=== PATIENT | male | born 1970 | race Caucasian/White ===

== ENCOUNTER 2017-10-16 08:46 | Emergency (ER) | payer MEDICAID, OTHER ==
[~2017-10-16] VITALS: Ht 167.6 cm; Wt 118.2 kg
[~2017-10-16 08:46] MED LIST: CYCL-1 PO; EMOL250L TOP; METH-360 PO; OMEP40CA37 PO; OXYC-145 PO; SUCR1ORA2 PO
[2017-10-16 08:53] VITALS: BP 151/101
[2017-10-16] MEDS ORDERED: TOBR5DRO2 EACHEYE (09:09)
== END 2017-10-16 09:11 | disposition home or self-care (01) ==
LOC: ER 08:48
DX: H10.9 Unspecified conjunctivitis (principal); K21.9 Gastro-esophageal reflux disease without esophagitis; L40.9 Psoriasis, unspecified; G89.29 Other chronic pain; Z98.890 Other specified postprocedural states; Z79.899 Other long term (current) drug therapy
CPT/HCPCS: 99283

== ENCOUNTER 2018-03-01 10:35 | Emergency (ER) | payer OTHER ==
[~2018-03-01] VITALS: Ht 167.6 cm; Wt 127.3 kg
[~2018-03-01 10:35] MED LIST changes: +TOBR5DRO2 EACHEYE
[2018-03-01 12:29] VITALS: BP 162/104
== END 2018-03-01 12:31 | disposition home or self-care (01) ==
LOC: ER 10:36
DX: S00.81XA Abrasion of other part of head, initial encounter (principal); L40.9 Psoriasis, unspecified; K21.9 Gastro-esophageal reflux disease without esophagitis; W10.8XXA Fall (on) (from) other stairs and steps, initial encounter; Y93.89 Activity, other specified; Y92.89 Other specified places as the place of occurrence of the external cause; Y99.8 Other external cause status
CPT/HCPCS: 70450; 99284

== ENCOUNTER 2018-03-03 06:10 | Emergency (ER) | payer OTHER ==
[~2018-03-03] VITALS: Ht 167.6 cm; Wt 127.0 kg
[2018-03-03 06:14] VITALS: BP 160/100
== END 2018-03-03 07:08 | disposition left against medical advice (07) ==
LOC: ER 06:11
DX: R11.10 Vomiting, unspecified (principal); R19.7 Diarrhea, unspecified; I10 Essential (primary) hypertension; R07.9 Chest pain, unspecified; R51 Headache; R06.02 Shortness of breath; R10.9 Unspecified abdominal pain; Z53.21 Procedure and treatment not carried out due to patient leaving prior to being seen by health care provider
CPT/HCPCS: 93005; 99281

== ENCOUNTER 2018-10-04 06:54 | Emergency (ER) | payer SELFPAY ==
[~2018-10-04] VITALS: Ht 167.6 cm; Wt 129.9 kg
[2018-10-04] MEDS ORDERED: gentamicin 0.3% ophthalmic drops 5ML EACHEYE ONE (08:20)
[2018-10-04] MEDS ORDERED: lisinopril 10 MG tablet PO ONE (08:20)
[2018-10-04] MEDS ORDERED: naphazoline/pheniramine eye 1 DROP BOTTLE EACHEYE PRN (08:20)
[2018-10-04] MEDS ORDERED: LISI-600 PO (08:23)
[2018-10-04 08:44] VITALS: BP 142/119
== END 2018-10-04 08:47 | disposition home or self-care (01) ==
LOC: ER 06:56
DX: H10.9 Unspecified conjunctivitis (principal); I10 Essential (primary) hypertension; K21.9 Gastro-esophageal reflux disease without esophagitis; G89.29 Other chronic pain; Z98.890 Other specified postprocedural states; Z79.899 Other long term (current) drug therapy
CPT/HCPCS: 99283

== ENCOUNTER 2018-11-06 07:31 | Emergency (ER) | payer SELFPAY ==
[~2018-11-06] VITALS: Ht 165.1 cm; Wt 113.6 kg
[~2018-11-06 07:31] MED LIST changes: +OMEP40CA13 PO; -OMEP40CA37 PO
[2018-11-06 08:13] VITALS: BP 181/100
[2018-11-06] MEDS ORDERED: ciprofloxacin 0.3% 2.5ml ophthalmic solution EACHEYE ONE (08:15)
== END 2018-11-06 09:57 | disposition home or self-care (01) ==
LOC: ER 07:32
DX: H10.9 Unspecified conjunctivitis (principal); I10 Essential (primary) hypertension; K21.9 Gastro-esophageal reflux disease without esophagitis; G89.29 Other chronic pain; Z98.890 Other specified postprocedural states; Z79.899 Other long term (current) drug therapy
CPT/HCPCS: 99282

== ENCOUNTER 2019-08-05 14:27 | Emergency (ER) | payer MEDICAID, OTHER ==
[~2019-08-05] VITALS: Ht 172.7 cm; Wt 160.0 kg
[2019-08-05 15:21] LABS: BASOPHILS % (AUTO) 0.3 % (0-1); EOSINOPHILS % (AUTO) 0.1 % (0-6); HEMATOCRIT 42.4 % (42.0-52.0); HEMOGLOBIN 14.4 g/dl (14.0-17.9); LYMPHOCYTES # (AUTO) 0.6 X10'3 (1.1-4.8); LYMPHOCYTES % (AUTO) 10.8 % (21-51); MEAN CORPUSCULAR HEMOGLOBIN 33.9 PG (27.0-31.0); MEAN CORPUSCULAR VOLUME 99.8 FL (78-98); MEAN PLATELET VOLUME 8.1 FL (7.4-10.4); MONOCYTES # (AUTO) 0.4 X10'3 (0-0.9); MONOCYTES % (AUTO) 6.5 % (2-12); NEUTROPHILS # (AUTO) 4.8 X10'3 (1.8-7.7); NEUTROPHILS % (AUTO) 82.3 % (42-75); RED BLOOD COUNT 4.24 X10'6 (4.70-6.10); RED CELL DISTRIBUTION WIDTH 13.8 % (11.5-14.5); WHITE BLOOD COUNT 5.8 X10'3 (4.5-11.0)
[2019-08-05 15:38] LABS: ALANINE AMINOTRANSFERASE 148 U/L (12-78); ALBUMIN 3.3 G/DL (3.4-5.0); ALBUMIN/GLOBULIN RATIO 0.9 (1.1-1.5); ALKALINE PHOSPHATASE 131 IU/L (46-116); ANION GAP 18 (8-16); ASPARTATE AMINO TRANSFERASE 353 U/L (10-37); BLOOD UREA NITROGEN 10 MG/DL (7-18); BUN/CREATININE RATIO 10.5 (5.4-32.0); CALCIUM 8.4 MG/DL (8.5-10.1); CHLORIDE 98 MMOL/L (99-107); CREATININE 0.95 MG/DL (0.60-1.10); GLUCOSE 102 MG/DL (70-104); POTASSIUM 3.4 MMOL/L (3.5-5.1); SODIUM 136 MMOL/L (135-145); TOTAL PROTEIN 7.1 G/DL (6.4-8.2); eGFR 84 ML/MIN
[2019-08-05 15:39] LABS: PLATELET COUNT 38 X10'3 (140-440)
[2019-08-05] MEDS ORDERED: thiamine 100mg/ml 2ml inj. IV ONE (15:45)
[2019-08-05] MEDS ORDERED: potassium chloride 10mEq ER tablet PO ONE (15:45)
[2019-08-05] MEDS ORDERED: normal saline 1000ML IV soln IVB ONE (15:45)
[2019-08-05] MEDS ORDERED: folic acid 1mg/0.2ml inj IV ONE (15:45)
[2019-08-05] MEDS ORDERED: LORazepam 2 mg/ml vial IV ONE (15:45)
[2019-08-05] MEDS ORDERED: ondansetron/PF 4mg/2ml inj IV ONE (15:45)
[2019-08-05 15:47] LABS: MAGNESIUM 1.4 MG/DL (1.5-2.4)
[2019-08-05 17:26] VITALS: BP 153/84
== END 2019-08-05 17:20 | disposition home or self-care (01) ==
LOC: ER 14:27
DX: K70.10 Alcoholic hepatitis without ascites (principal); R53.1 Weakness; R20.0 Anesthesia of skin; I10 Essential (primary) hypertension; K21.9 Gastro-esophageal reflux disease without esophagitis; G89.29 Other chronic pain; Z98.890 Other specified postprocedural states; Z72.89 Other problems related to lifestyle; Z79.2 Long term (current) use of antibiotics; Z79.899 Other long term (current) drug therapy
CPT/HCPCS: 36415; 71045; 76700; 80053; 83735; 83880; 84484; 85025; 85610; 93005; 96374; 96375; 99285; J2060; J2405; J3411; J3490; J7030

== ENCOUNTER 2019-12-01 12:38 | Emergency (ER) | payer MEDICAID, OTHER ==
[~2019-12-01] VITALS: Ht 167.6 cm; Wt 139.7 kg
[2019-12-01] MEDS ORDERED: LIDOcaine 2% 10ml TOPICAL JELLY (Urojet) MM ONE (15:55)
[2019-12-01 17:18] LABS: BASOPHILS # (AUTO) 0.1 X10'3 (0-0.2); BASOPHILS % (AUTO) 0.8 % (0-1); EOSINOPHILS # (AUTO) 0.2 X10'3 (0-0.9); EOSINOPHILS % (AUTO) 2.1 % (0-6); HEMATOCRIT 31.5 % (42.0-52.0); HEMOGLOBIN 10.5 g/dl (14.0-17.9); LYMPHOCYTES # (AUTO) 1.6 X10'3 (1.1-4.8); LYMPHOCYTES % (AUTO) 16.8 % (21-51); MEAN CORPUSCULAR HEMOGLOBIN 36.3 PG (27.0-31.0); MEAN CORPUSCULAR HGB CONC 33.4 g/dL (33.0-36.5); MEAN CORPUSCULAR VOLUME 108.7 FL (78-98); MEAN PLATELET VOLUME 8.2 FL (7.4-10.4); MONOCYTES # (AUTO) 1.3 X10'3 (0-0.9); MONOCYTES % (AUTO) 13.7 % (2-12); NEUTROPHILS # (AUTO) 6.4 X10'3 (1.8-7.7); NEUTROPHILS % (AUTO) 66.6 % (42-75); PLATELET COUNT 74 X10'3 (140-440); RED CELL DISTRIBUTION WIDTH 14.4 % (11.5-14.5); WHITE BLOOD COUNT 9.6 X10'3 (4.5-11.0)
[2019-12-01 17:30] LABS: ALANINE AMINOTRANSFERASE 39 U/L (12-78); ALBUMIN 2.3 G/DL (3.4-5.0); ALKALINE PHOSPHATASE 122 IU/L (46-116); ANION GAP 6 (8-16); ASPARTATE AMINO TRANSFERASE 61 U/L (10-37); BILIRUBIN,TOTAL 4.7 MG/DL (0.1-1.0); BLOOD UREA NITROGEN 14 MG/DL (7-18); BUN/CREATININE RATIO 11.6 (5.4-32.0); CALCIUM 8.7 MG/DL (8.5-10.1); CHLORIDE 108 MMOL/L (99-107); CREATININE 1.21 MG/DL (0.60-1.10); GLUCOSE 96 MG/DL (70-104); POTASSIUM 4.2 MMOL/L (3.5-5.1); SODIUM 141 MMOL/L (135-145); TOTAL CARBON DIOXIDE 27.2 MMOL/L (24-32); eGFR 64 ML/MIN
[2019-12-01] MEDS ORDERED: albumin (Human) 5% 250ml 250 ML IV ONE (17:50)
[2019-12-01 17:52] LABS: ALBUMIN/GLOBULIN RATIO 0.5 (1.1-1.5); TOTAL PROTEIN 6.6 G/DL (6.4-8.2)
[2019-12-01 18:34] LABS: PLATELET ESTIMATE DECREASED
[2019-12-01 18:37] LABS: ANISOCYTOSIS FEW
[2019-12-01 18:38] LABS: LARGE PLATELETS FEW; POLYCHROMASIA 1+
--- NOTE | 2019-12-01 19:33 | NUR ---
CALZIME CREAM PLACED AFTER CLEANING WOUND ON PENIS, EXTRA CALZIME CREAM WILL BE SENT HOME WITH PT
[2019-12-01 19:58] LABS: CLARITY,URINE CLOUDY (Clear); COLOR,URINE AMBER (Yellow); GLUCOSE, URINE NEGATIVE (Neg); KETONES,URINE NEGATIVE (Neg); LEUKOCYTE ESTERASE ,URINE NEGATIVE (Neg); NITRITES, URINE NEGATIVE (Neg); OCCULT BLOOD,URINE LARGE (Neg); PROTEIN,URINE NEGATIVE (Neg)
[2019-12-01 20:01] LABS: UA COLLECTION TYPE FOLEY CATH
[2019-12-01 20:04] LABS: BACTERIA,URINE NONE SEEN /HPF (Neg); RBC,URINE 0-2 /HPF (0-2); SQUAMOUS EPITHELIAL CELL,UR FEW /LPF (FEW); WBC,URINE NONE SEEN /HPF (0-4)
[2019-12-01 21:23] VITALS: BP 145/78
== END 2019-12-01 21:26 | disposition home or self-care (01) ==
LOC: ER 12:40
DX: K74.60 Unspecified cirrhosis of liver (principal); R18.8 Other ascites; E66.9 Obesity, unspecified; I10 Essential (primary) hypertension; K21.9 Gastro-esophageal reflux disease without esophagitis; G89.29 Other chronic pain; Z98.890 Other specified postprocedural states
CPT/HCPCS: 36415; 49083; 80053; 81001; 85008; 85025; 85610; 96365; 99285; P9045

== ENCOUNTER 2019-12-03 07:38 | Emergency (ER) | payer MEDICAID ==
[~2019-12-03] VITALS: Ht 167.6 cm; Wt 90.0 kg
[2019-12-03 07:44] VITALS: BP 139/67
--- NOTE | 2019-12-03 08:05 | NUR ---
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
--- NOTE | 2019-12-03 08:39 | NUR ---
F/C REMOVED PER MD ORDERS. PT AMBULATED TO BR AND WAS ABLE TO VOID AND HAVE A BM PER HIM.
== END 2019-12-03 08:41 | disposition home or self-care (01) ==
LOC: ER 07:39
DX: T83.9XXA Unspecified complication of genitourinary prosthetic device, implant and graft, initial encounter (principal); I10 Essential (primary) hypertension; K21.9 Gastro-esophageal reflux disease without esophagitis; G89.29 Other chronic pain; R21 Rash and other nonspecific skin eruption; Z98.890 Other specified postprocedural states; Z72.89 Other problems related to lifestyle; Z79.899 Other long term (current) drug therapy
CPT/HCPCS: 99284

== ENCOUNTER 2019-12-14 06:52 | Day surgery (SDC) | payer MEDICAID ==
[~2019-12-14] VITALS: Ht 165.1 cm; Wt 145.4 kg
[2019-12-14] VITALS (10 sets, daily range): BP systolic 120–152; BP diastolic 57–92
[2019-12-14] MEDS ORDERED: LACT10SO57 PO (07:38)
[2019-12-14] MEDS ORDERED: SPIR100T5 PO (07:38)
[2019-12-14] MEDS ORDERED: CYAN500T64 PO (07:38)
[2019-12-14] MEDS ORDERED: FURO40TA4 PO (07:38)
[2019-12-14] MEDS ORDERED: THIA100T70 PO (07:38)
[2019-12-14] MEDS ORDERED: POTA20PA40 PEG (07:38)
[2019-12-14] MEDS: albumin 25% 100mL bottle x 1 IV PRN ×2 (09:08→09:57)
== END 2019-12-14 10:50 | disposition home or self-care (01) ==
LOC: SSTAY O 06:52
PROVIDERS: ATTEND Radiology Vascular & Interventional Radiology
DX: K70.31 Alcoholic cirrhosis of liver with ascites (principal); I10 Essential (primary) hypertension; K21.9 Gastro-esophageal reflux disease without esophagitis; G89.29 Other chronic pain; Z98.890 Other specified postprocedural states; Z72.89 Other problems related to lifestyle; Z79.899 Other long term (current) drug therapy
CPT/HCPCS: 49083; P9047

== ENCOUNTER 2019-12-24 06:36 | Day surgery (SDC) | payer MEDICAID ==
[2019-12-24] VITALS (13 sets, daily range): BP systolic 100–151; BP diastolic 52–83
[~2019-12-24] VITALS: Ht 165.1 cm; Wt 140.0 kg
[~2019-12-24 06:36] MED LIST changes: +CYAN500T64 PO; -CYCL-1 PO; -EMOL250L TOP; +FURO40TA4 PO; +LACT10SO57 PO; -METH-360 PO; -OMEP40CA13 PO; -OXYC-145 PO; +POTA20PA40 PEG; +SPIR100T5 PO; -SUCR1ORA2 PO; +THIA100T70 PO; -TOBR5DRO2 EACHEYE
[2019-12-24] MEDS: albumin 25% 100mL bottle x 1 IV PRN ×2 (08:52→10:17)
== END 2019-12-24 11:31 | disposition home or self-care (01) ==
LOC: SSTAY O 06:36
PROVIDERS: ATTEND Radiology Diagnostic Radiology
DX: K70.31 Alcoholic cirrhosis of liver with ascites (principal); I10 Essential (primary) hypertension; K21.9 Gastro-esophageal reflux disease without esophagitis; G89.29 Other chronic pain; D53.9 Nutritional anemia, unspecified; D69.6 Thrombocytopenia, unspecified; Z98.890 Other specified postprocedural states; Z72.89 Other problems related to lifestyle; Z87.891 Personal history of nicotine dependence
CPT/HCPCS: 49083; P9047

== ENCOUNTER 2019-12-24 17:30 | Emergency (ER) | payer MEDICAID ==
[~2019-12-24] VITALS: Ht 167.6 cm; Wt 130.0 kg
[2019-12-24] MEDS ORDERED: ketorolac trometh inj. 60 MG/2 ML VIAL IM ONE (20:45)
[2019-12-24 21:20] VITALS: BP 153/83
== END 2019-12-24 21:23 | disposition home or self-care (01) ==
LOC: ER 17:30
DX: M79.10 Myalgia, unspecified site (principal); K70.30 Alcoholic cirrhosis of liver without ascites; I10 Essential (primary) hypertension; K21.9 Gastro-esophageal reflux disease without esophagitis; G89.29 Other chronic pain; Z98.890 Other specified postprocedural states; Z72.89 Other problems related to lifestyle; Z79.899 Other long term (current) drug therapy
CPT/HCPCS: 96372; 99283; J1885

== ENCOUNTER 2020-01-01 08:02 | Emergency (ER) | payer MEDICAID ==
[~2020-01-01] VITALS: Ht 167.6 cm; Wt 127.3 kg
[2020-01-01] MEDS ORDERED: pantoprazole 40 MG vial IV ONE (08:20)
[2020-01-01] MEDS ORDERED: ondansetron/PF 4mg/2ml inj IV ONE (08:20)
[2020-01-01] MEDS ORDERED: famotidine/PF 10 mg/ml inj IV ONE (08:20)
[2020-01-01 08:33] LABS: BASOPHILS # (AUTO) 0.1 X10'3 (0-0.2); BASOPHILS % (AUTO) 0.5 % (0-1); EOSINOPHILS # (AUTO) 0.2 X10'3 (0-0.9); EOSINOPHILS % (AUTO) 2.1 % (0-6); HEMOGLOBIN 9.6 g/dl (14.0-17.9); LYMPHOCYTES # (AUTO) 1.4 X10'3 (1.1-4.8); LYMPHOCYTES % (AUTO) 14.5 % (21-51); MEAN CORPUSCULAR HEMOGLOBIN 35.5 PG (27.0-31.0); MEAN CORPUSCULAR HGB CONC 33.3 g/dL (33.0-36.5); MEAN CORPUSCULAR VOLUME 106.7 FL (78-98); MONOCYTES # (AUTO) 0.8 X10'3 (0-0.9); NEUTROPHILS # (AUTO) 7.3 X10'3 (1.8-7.7); NEUTROPHILS % (AUTO) 74.9 % (42-75); PLATELET COUNT 66 X10'3 (140-440); RED BLOOD COUNT 2.72 X10'6 (4.70-6.10); RED CELL DISTRIBUTION WIDTH 15.5 % (11.5-14.5); WHITE BLOOD COUNT 9.8 X10'3 (4.5-11.0)
[2020-01-01 08:49] LABS: PARTIAL THROMBOPLASTIN TIME 31 SECONDS (22-32)
[2020-01-01 08:57] LABS: ALANINE AMINOTRANSFERASE 40 U/L (12-78); ALBUMIN 2.4 G/DL (3.4-5.0); ALKALINE PHOSPHATASE 126 IU/L (46-116); ANION GAP 4 (8-16); ASPARTATE AMINO TRANSFERASE 47 U/L (10-37); BILIRUBIN,TOTAL 4.5 MG/DL (0.1-1.0); BLOOD UREA NITROGEN 23 MG/DL (7-18); CALCIUM 8.3 MG/DL (8.5-10.1); CHLORIDE 105 MMOL/L (99-107); CREATININE 1.64 MG/DL (0.60-1.10); GLUCOSE 124 MG/DL (70-104); POTASSIUM 4.3 MMOL/L (3.5-5.1); SODIUM 135 MMOL/L (135-145); TOTAL CARBON DIOXIDE 25.9 MMOL/L (24-32); eGFR 45 ML/MIN
[2020-01-01 09:02] LABS: ALBUMIN/GLOBULIN RATIO 0.6 (1.1-1.5); TOTAL PROTEIN 6.7 G/DL (6.4-8.2)
[2020-01-01] MEDS ORDERED: proCHLORperazine 10 MG/2 ml inj IV ONE (09:25)
[2020-01-01] MEDS ORDERED: FAMO-128 PO (09:32)
[2020-01-01] MEDS ORDERED: ONDA4TAB6 PO (09:32)
[2020-01-01 10:31] VITALS: BP 144/82
[2020-01-01 10:36] LABS: CLARITY,URINE SLIGHTLY CLOUDY (Clear); COLOR,URINE AMBER (Yellow); GLUCOSE, URINE NEGATIVE (Neg); KETONES,URINE NEGATIVE (Neg); LEUKOCYTE ESTERASE ,URINE NEGATIVE (Neg); NITRITES, URINE NEGATIVE (Neg); OCCULT BLOOD,URINE LARGE (Neg); PH,URINE 5.5 (4.8-8.0); PROTEIN,URINE 30 mg/dl (Neg)
[2020-01-01 10:37] LABS: UA COLLECTION TYPE VOIDED
[2020-01-01 10:47] LABS: MUCUS STRANDS FEW /LPF (Neg); SQUAMOUS EPITHELIAL CELL,UR MODERATE /LPF (FEW)
[2020-01-01 10:49] LABS: BACTERIA,URINE 1+ /HPF (Neg); RBC,URINE 50-100 /HPF (0-2)
[2020-01-01 10:50] LABS: TRANSITIONAL EPI CELLS,URINE FEW /HPF
[2020-01-01 10:55] LABS: COARSE GRANULAR CAST 0-3 /LPF (NEGATIVE); WBC CASTS 0-3 /LPF (NEGATIVE)
== END 2020-01-01 10:34 | disposition home or self-care (01) ==
LOC: ER 08:03
DX: K62.5 Hemorrhage of anus and rectum (principal); K29.70 Gastritis, unspecified, without bleeding; I10 Essential (primary) hypertension; K21.9 Gastro-esophageal reflux disease without esophagitis; G89.29 Other chronic pain; Z98.890 Other specified postprocedural states; Z72.89 Other problems related to lifestyle; Z79.899 Other long term (current) drug therapy
CPT/HCPCS: 36415; 71045; 80053; 81001; 85025; 85610; 85730; 86885; 86900; 86901; 87088; 93005; 96374; 96375; 96376; 99285; C9113; J0780; J2405; J3490

== ENCOUNTER 2020-01-04 07:04 | Day surgery (SDC) | payer MEDICAID ==
[~2020-01-04] VITALS: Ht 165.1 cm; Wt 132.3 kg
[2020-01-04] VITALS (9 sets, daily range): BP systolic 123–137; BP diastolic 60–77
[~2020-01-04 07:04] MED LIST changes: +FAMO-128 PO; +ONDA4TAB6 PO
[2020-01-04] MEDS ORDERED: normal saline 1000ml 1,000 ML IV PRN (07:35)
[2020-01-04] MEDS: albumin 25% 100mL bottle x 1 IV PRN ×2 (09:06→09:42)
== END 2020-01-04 10:40 | disposition home or self-care (01) ==
LOC: SSTAY O 07:04
PROVIDERS: ATTEND Radiology Vascular & Interventional Radiology
DX: K70.31 Alcoholic cirrhosis of liver with ascites (principal); Z79.899 Other long term (current) drug therapy; Z98.890 Other specified postprocedural states; Z72.89 Other problems related to lifestyle
CPT/HCPCS: 49083; P9047

== ENCOUNTER 2020-01-15 08:20 | Day surgery (SDC) | payer MEDICAID ==
[2020-01-15] VITALS (10 sets, daily range): BP systolic 118–131; BP diastolic 45–76
[~2020-01-15] VITALS: Ht 165.1 cm; Wt 130.2 kg
[2020-01-15] MEDS: albumin 25% 100mL bottle x 1 IV PRN ×2 (10:28→11:04)
== END 2020-01-15 12:10 | disposition home or self-care (01) ==
LOC: SSTAY O 08:20
PROVIDERS: ATTEND Radiology Vascular & Interventional Radiology
DX: K70.31 Alcoholic cirrhosis of liver with ascites (principal); I10 Essential (primary) hypertension; K21.9 Gastro-esophageal reflux disease without esophagitis; G89.29 Other chronic pain; Z98.890 Other specified postprocedural states; Z72.89 Other problems related to lifestyle; Z79.899 Other long term (current) drug therapy
CPT/HCPCS: 49083; P9047

== ENCOUNTER 2021-04-23 22:51 | Emergency (ER) | payer MEDICAID ==
[~2021-04-23] VITALS: Ht 167.6 cm; Wt 90.2 kg
[~2021-04-23 22:51] MED LIST changes: -CYAN500T64 PO; +CYAN500T71 PO; -ONDA4TAB6 PO; -POTA20PA40 PEG
[2021-04-24] MEDS ORDERED: ketorolac trometh. 30mg/ml inj. IV ONE (00:15)
[2021-04-24] MEDS ORDERED: ondansetron/PF 4mg/2ml inj IV ONE (00:15)
[2021-04-24] MEDS ORDERED: morphine 4 MG/ML inj SYRINge IV ONE (00:15)
[2021-04-24 00:32] LABS: BASOPHILS # (AUTO) 0.1 X10'3 (0-0.2); EOSINOPHILS # (AUTO) 0.3 X10'3 (0-0.9); EOSINOPHILS % (AUTO) 4.2 % (0-6); HEMATOCRIT 34.7 % (42.0-52.0); HEMOGLOBIN 12.1 g/dl (14.0-17.9); LYMPHOCYTES # (AUTO) 1.2 X10'3 (1.1-4.8); MEAN CORPUSCULAR HEMOGLOBIN 33.8 PG (27.0-31.0); MEAN CORPUSCULAR HGB CONC 34.8 g/dL (33.0-36.5); MEAN CORPUSCULAR VOLUME 97.2 FL (78-98); MEAN PLATELET VOLUME 7.4 FL (7.4-10.4); MONOCYTES # (AUTO) 0.7 X10'3 (0-0.9); MONOCYTES % (AUTO) 10.4 % (2-12); NEUTROPHILS # (AUTO) 4.5 X10'3 (1.8-7.7); NEUTROPHILS % (AUTO) 66.4 % (42-75); PLATELET COUNT 71 X10'3 (140-440); RED BLOOD COUNT 3.56 X10'6 (4.70-6.10); RED CELL DISTRIBUTION WIDTH 15.4 % (11.5-14.5); WHITE BLOOD COUNT 6.8 X10'3 (4.5-11.0)
[2021-04-24 00:51] LABS: ALANINE AMINOTRANSFERASE 33 U/L (12-78); ALBUMIN 2.5 G/DL (3.4-5.0); ALBUMIN/GLOBULIN RATIO 0.9 (1.1-1.5); ALKALINE PHOSPHATASE 160 IU/L (46-116); ANION GAP 7 (8-16); ASPARTATE AMINO TRANSFERASE 35 U/L (10-37); BILIRUBIN,DIRECT 0.5 MG/DL (0-0.3); BILIRUBIN,TOTAL 1.2 MG/DL (0.1-1.0); BLOOD UREA NITROGEN 22 MG/DL (7-18); BUN/CREATININE RATIO 21.6 (5.4-32.0); CALCIUM 7.9 MG/DL (8.5-10.1); CHLORIDE 107 MMOL/L (99-107); CREATININE 1.02 MG/DL (0.60-1.10); GLUCOSE 126 MG/DL (70-104); LIPASE 110 U/L (73-393); POTASSIUM 3.6 MMOL/L (3.5-5.1); SODIUM 139 MMOL/L (135-145); TOTAL CARBON DIOXIDE 24.8 MMOL/L (24-32); TOTAL PROTEIN 5.4 G/DL (6.4-8.2); eGFR 77 ML/MIN
[2021-04-24 01:22] LABS: CLARITY,URINE CLEAR (Clear); COLOR,URINE YELLOW (Yellow); GLUCOSE, URINE NEGATIVE (Neg); KETONES,URINE NEGATIVE (Neg); LEUKOCYTE ESTERASE ,URINE NEGATIVE (Neg); NITRITES, URINE NEGATIVE (Neg); OCCULT BLOOD,URINE TRACE-INTACT (Neg); PROTEIN,URINE NEGATIVE (Neg); UROBILINOGEN,URINE 0.2 E.U/dL (0.2-1.0)
[2021-04-24 01:29] LABS: UA COLLECTION TYPE NON-SPECIFIED
[2021-04-24 01:31] LABS: BACTERIA,URINE NONE SEEN /HPF (Neg); RBC,URINE 0-2 /HPF (0-2); SQUAMOUS EPITHELIAL CELL,UR FEW /LPF (FEW); WBC,URINE NONE SEEN /HPF (0-4)
--- NOTE | 2021-04-24 02:19 | NUR ---
US just finished with patient.
[2021-04-24 03:09] VITALS: BP 125/62
== END 2021-04-24 03:13 | disposition home or self-care (01) ==
LOC: ER 22:52
DX: N43.3 Hydrocele, unspecified (principal); R10.84 Generalized abdominal pain; K42.9 Umbilical hernia without obstruction or gangrene; I10 Essential (primary) hypertension; K21.9 Gastro-esophageal reflux disease without esophagitis; G89.29 Other chronic pain; Z72.89 Other problems related to lifestyle; K74.60 Unspecified cirrhosis of liver; Z79.899 Other long term (current) drug therapy
CPT/HCPCS: 36415; 71045; 76870; 80048; 80076; 81001; 83690; 85025; 93976; 96374; 96375; 99285; J1885; J2270; J2405

== ENCOUNTER 2021-05-30 20:30 | Emergency (ER) | payer MEDICAID ==
[~2021-05-30] VITALS: Ht 167.6 cm; Wt 96.8 kg
[2021-05-30 21:13] VITALS: BP 156/77
[2021-05-30 21:20] LABS: CLARITY,URINE CLEAR (Clear); COLOR,URINE YELLOW (Yellow); GLUCOSE, URINE NEGATIVE (Neg); KETONES,URINE NEGATIVE (Neg); LEUKOCYTE ESTERASE ,URINE NEGATIVE (Neg); NITRITES, URINE NEGATIVE (Neg); OCCULT BLOOD,URINE TRACE-INTACT (Neg); PH,URINE 7.5 (4.8-8.0); PROTEIN,URINE NEGATIVE (Neg)
[2021-05-30 21:24] LABS: UA COLLECTION TYPE NON-SPECIFIED
[2021-05-30 21:27] LABS: BACTERIA,URINE NONE SEEN /HPF (Neg); MUCUS STRANDS NONE SEEN /LPF (Neg); RBC,URINE 0-2 /HPF (0-2); SQUAMOUS EPITHELIAL CELL,UR NONE SEEN /LPF (FEW); WBC,URINE 0-4 /HPF (0-4)
[2021-05-30 21:27] LABS: BASOPHILS % (AUTO) 0.7 % (0-1); EOSINOPHILS # (AUTO) 0.3 X10'3 (0-0.9); HEMATOCRIT 34.9 % (42.0-52.0); HEMOGLOBIN 11.7 g/dl (14.0-17.9); LYMPHOCYTES # (AUTO) 1.4 X10'3 (1.1-4.8); LYMPHOCYTES % (AUTO) 19.7 % (21-51); MEAN CORPUSCULAR HEMOGLOBIN 32.4 PG (27.0-31.0); MEAN CORPUSCULAR HGB CONC 33.6 g/dL (33.0-36.5); MEAN CORPUSCULAR VOLUME 96.3 FL (78-98); MEAN PLATELET VOLUME 7.8 FL (7.4-10.4); MONOCYTES # (AUTO) 0.7 X10'3 (0-0.9); NEUTROPHILS # (AUTO) 4.5 X10'3 (1.8-7.7); NEUTROPHILS % (AUTO) 65.6 % (42-75); PLATELET COUNT 80 X10'3 (140-440); RED BLOOD COUNT 3.62 X10'6 (4.70-6.10); RED CELL DISTRIBUTION WIDTH 14.4 % (11.5-14.5); WHITE BLOOD COUNT 6.9 X10'3 (4.5-11.0)
[2021-05-30 21:33] LABS: ALANINE AMINOTRANSFERASE 33 U/L (12-78); ALBUMIN 2.7 G/DL (3.4-5.0); ALBUMIN/GLOBULIN RATIO 0.9 (1.1-1.5); ALKALINE PHOSPHATASE 151 IU/L (46-116); ANION GAP 7 (8-16); ASPARTATE AMINO TRANSFERASE 34 U/L (10-37); BLOOD UREA NITROGEN 23 MG/DL (7-18); BUN/CREATININE RATIO 27.1 (5.4-32.0); CALCIUM 7.7 MG/DL (8.5-10.1); CHLORIDE 111 MMOL/L (99-107); CREATININE 0.85 MG/DL (0.60-1.10); GLUCOSE 112 MG/DL (70-104); LIPASE 117 U/L (73-393); SODIUM 142 MMOL/L (135-145); TOTAL CARBON DIOXIDE 24.3 MMOL/L (24-32); TOTAL PROTEIN 5.7 G/DL (6.4-8.2); eGFR > 90 ML/MIN
--- NOTE | 2021-05-30 21:46 | NUR ---
report given from nurse patient is resting comfortably at this time, cardiac montior in place bed in lowest position
[2021-05-30] MEDS ORDERED: sucralfate 1gm/10ml UD suspension PO STA (21:48)
[2021-05-30] MEDS ORDERED: normal saline 1000ML IV soln IVB ONE (21:50)
[2021-05-30] MEDS ORDERED: LIDOcaine Viscous 15ml cup MM ONE (21:50)
[2021-05-30] MEDS ORDERED: ondansetron/PF 4mg/2ml inj IV ONE (21:50)
[2021-05-30] MEDS ORDERED: sucralfate 1 gm tablet PO STA (21:50)
[2021-05-30] MEDS ORDERED: morphine 4 MG/ML inj SYRINge IV PRN (21:50)
[2021-05-30] MEDS ORDERED: mag hydrox/Alum hydrox/simeth 30ml oral suspension PO ONE (21:50)
== END 2021-05-30 23:38 | disposition home or self-care (01) ==
LOC: ER 20:30
DX: K74.60 Unspecified cirrhosis of liver (principal); R10.10 Upper abdominal pain, unspecified; R11.2 Nausea with vomiting, unspecified; I10 Essential (primary) hypertension; K21.9 Gastro-esophageal reflux disease without esophagitis; G89.29 Other chronic pain; Z98.890 Other specified postprocedural states; Z72.89 Other problems related to lifestyle; Z79.899 Other long term (current) drug therapy
CPT/HCPCS: 80053; 81001; 83690; 85025; 93005; 96374; 96375; 99284; J2270; J2405; J7030

== ENCOUNTER 2021-06-11 21:39 | Emergency (ER) | payer MEDICAID ==
[~2021-06-11] VITALS: Ht 167.6 cm; Wt 96.8 kg
[2021-06-11] MEDS ORDERED: LORazepam 2 mg/ml vial IV ONE (22:30)
[2021-06-11] MEDS ORDERED: diphenhydrAMINE 50 mg/ml inj IV ONE (22:30)
[2021-06-11] MEDS ORDERED: normal saline 1000ML IV soln IVB ONE (22:30)
[2021-06-11] MEDS ORDERED: metoclopramide 5 mg/ml inj IV ONE (22:30)
[2021-06-11 23:20] LABS: BASOPHILS # (AUTO) 0.1 X10'3 (0-0.2); BASOPHILS % (AUTO) 1.8 % (0-1); EOSINOPHILS # (AUTO) 0.2 X10'3 (0-0.9); EOSINOPHILS % (AUTO) 2.3 % (0-6); HEMOGLOBIN 13.7 g/dl (14.0-17.9); LYMPHOCYTES # (AUTO) 0.9 X10'3 (1.1-4.8); LYMPHOCYTES % (AUTO) 12.6 % (21-51); MEAN CORPUSCULAR HEMOGLOBIN 31.5 PG (27.0-31.0); MEAN CORPUSCULAR HGB CONC 33.5 g/dL (33.0-36.5); MEAN CORPUSCULAR VOLUME 93.9 FL (78-98); MONOCYTES # (AUTO) 0.5 X10'3 (0-0.9); MONOCYTES % (AUTO) 6.2 % (2-12); NEUTROPHILS # (AUTO) 5.7 X10'3 (1.8-7.7); NEUTROPHILS % (AUTO) 77.1 % (42-75); PLATELET COUNT 83 X10'3 (140-440); RED BLOOD COUNT 4.37 X10'6 (4.70-6.10); WHITE BLOOD COUNT 7.3 X10'3 (4.5-11.0)
[2021-06-11 23:31] LABS: ALANINE AMINOTRANSFERASE 31 U/L (12-78); ALBUMIN 3.1 G/DL (3.4-5.0); ALBUMIN/GLOBULIN RATIO 0.9 (1.1-1.5); ALKALINE PHOSPHATASE 156 IU/L (46-116); ANION GAP 11 (8-16); ASPARTATE AMINO TRANSFERASE 37 U/L (10-37); BILIRUBIN,TOTAL 1.1 MG/DL (0.1-1.0); BLOOD UREA NITROGEN 27 MG/DL (7-18); BUN/CREATININE RATIO 23.9 (5.4-32.0); CALCIUM 8.4 MG/DL (8.5-10.1); CHLORIDE 108 MMOL/L (99-107); CREATININE 1.13 MG/DL (0.60-1.10); GLUCOSE 112 MG/DL (70-104); POTASSIUM 4.1 MMOL/L (3.5-5.1); SODIUM 142 MMOL/L (135-145); TOTAL CARBON DIOXIDE 22.6 MMOL/L (24-32); TOTAL PROTEIN 6.7 G/DL (6.4-8.2); eGFR 68 ML/MIN
[2021-06-11 23:33] LABS: LIPASE 119 U/L (73-393)
[2021-06-12 00:35] LABS: CLARITY,URINE CLEAR (Clear); COLOR,URINE YELLOW (Yellow); GLUCOSE, URINE NEGATIVE (Neg); KETONES,URINE NEGATIVE (Neg); LEUKOCYTE ESTERASE ,URINE NEGATIVE (Neg); NITRITES, URINE NEGATIVE (Neg); OCCULT BLOOD,URINE TRACE-INTACT (Neg); PH,URINE 7.5 (4.8-8.0); PROTEIN,URINE NEGATIVE (Neg); UROBILINOGEN,URINE 0.2 E.U/dL (0.2-1.0)
[2021-06-12 00:45] LABS: UA COLLECTION TYPE VOIDED
[2021-06-12 00:48] LABS: BACTERIA,URINE NONE SEEN /HPF (Neg); MUCUS STRANDS NONE SEEN /LPF (Neg); SQUAMOUS EPITHELIAL CELL,UR FEW /LPF (FEW); WBC,URINE NONE SEEN /HPF (0-4)
[2021-06-12] MEDS ORDERED: morphine 4 MG/ML inj SYRINge IV ONE (01:00)
[2021-06-12 04:15] VITALS: BP 123/55
== END 2021-06-12 04:48 | disposition home or self-care (01) ==
LOC: ER 21:40
DX: R10.9 Unspecified abdominal pain (principal); R14.0 Abdominal distension (gaseous); I10 Essential (primary) hypertension; K21.9 Gastro-esophageal reflux disease without esophagitis; G89.29 Other chronic pain; K76.9 Liver disease, unspecified; Z72.89 Other problems related to lifestyle; Z98.890 Other specified postprocedural states; Z79.899 Other long term (current) drug therapy
CPT/HCPCS: 36415; 74176; 80053; 81001; 83690; 85025; 96361; 96374; 96375; 99285; J1200; J2060; J2270; J2765; J7030; 81003